=== PATIENT | male | born 1960 | race Caucasian/White ===

== ENCOUNTER 2021-12-27 12:36 | Inpatient (IN) | payer SELFPAY ==
[2021-12-27] MEDS ORDERED: DIAZEPAM 10 MG/2 ML INJ SYRINGE ONE (13:00)
[2021-12-27] MEDS ORDERED: MULTIVITAMINS 10 ML VIAL (INJ) IV ONE (13:01)
[2021-12-27] MEDS ORDERED: THIAMINE 200 MG/2 ML INJ ONE (13:01)
[2021-12-27] MEDS ORDERED: NA CHLORIDE 0.9% 1,000 ML ONE (13:02)
[2021-12-27] MEDS ORDERED: FOLIC ACID 5 MG/ML VIAL ONE (13:02)
--- NOTE | 2021-12-27 13:09 | RAD REPORT ---
EXAM DESCRIPTION: CT - Head Brain Wo Cont - 12/27/2021 1:04 pm CLINICAL HISTORY: Delirium Headache, drowsiness COMPARISON: No comparisons TECHNIQUE: All CT scans are performed using dose optimization technique as appropriate and may inclu de automated exposure control or mA/KV adjustment according to patient size. FINDINGS: No intracranial hemorrhage, hydrocephalus or extra-axial fluid collection.Mild brain atrop hy.No areas of brain edema or evidence of midline shift. The paranasal sinuses and mastoids are clear except for mild polypoid thickening in the sphenoid sinu s. The calvarium is intact. IMPRESSION: No acute intracranial abnormality.
[2021-12-27 14:07] LABS: Hematocrit 49.9 % (39.6-49.0); Lymphocytes % 9.2 % (15.3-44.8); MPV 9.7 fL (7.6-11.3); RBC Red Blood Cell Count 5.15 M/uL (4.33-5.43)
[2021-12-27 14:17] LABS: Protime INR 5.57
[2021-12-27 14:32] LABS: Platelet Estimate DECR; White Blood Cell Scan OK (OK)
[2021-12-27 14:33] LABS: Blood Morphology Comment NOT SEEN (NOT SEEN)
[2021-12-27 14:35] LABS: Albumin 2.1 g/dL (3.4-5.0)
[2021-12-27 14:36] LABS: Potassium 3.5 mmol/L (3.5-5.1)
[2021-12-27 14:42] LABS: Bilirubin Total 35.9 mg/dL (0.2-1.0)
--- NOTE | 2021-12-27 14:55 | RAD REPORT ---
EXAM DESCRIPTION: RAD - Chest Single View - 12/27/2021 2:47 pm CLINICAL HISTORY: CONGESTION Chest pain. COMPARISON: No comparisons FINDINGS: Portable technique limits examination quality. The lungs are grossly clear. The heart is normal in size. No displaced fractures.Prominent carotid ca lcifications seen in the neck. IMPRESSION: No acute intrathoracic process suspected.
--- NOTE | 2021-12-27 15:01 | EDPHYS ---
Physician Documentation [facility] Name: Gideon Pate Age: 61 yrs Sex: Male : 1960 Arrival Date: 12/27/2021 Time: 12:39 Bed 3 Private MD: ED Physician Hilary Thibodeaux HPI: 12/27 12:43 This 61 yrs old Male presents to ER via Unassigned with complaints of Altered mental ma2 status. 12:43 59-year-old male with alcoholic liver cirrhosis, has jaundice for a month, stop ma2 drinking a week ago, here with confusion for 3 days patient's altered, unable to give history, restless no vomiting diarrhea he has not been complaining of pain. Historical: - Allergies: 14:28 No Known Allergies; jg9 - PMHx: 14:28 ETOH ABUSE SINCE 12 YEARS OLD-BEER; jg9 - Immunization history:: Adult Immunizations Client reports receiving the 2nd dose of the Covid vaccine, Last tetanus immunization: Pneumococcal vaccine is not up to date, Flu vaccine is not up to date. - Social history:: Patient uses alcohol, Heavy drinking, quit drinking last week. Patient/guardian denies using street drugs, IV drugs, The patient lives with family, Smoking status: Patient reports the use of cigarette tobacco products, smokes one pack cigarettes per day. ROS: 12:43 Constitutional: Negative for fever, chills, and weight loss. ma2 12:43 All other systems are negative. 12:43 Unable to obtain ROS due to altered mental status. ma2 Exam: 12:43 Constitutional: Patient is cachectic, jaundiced restless altered nonverbal does not ma2 answer questions unkempt Head/Face: Normocephalic, atraumatic. Eyes: Pupils equal round and reactive to light, extra-ocular motions intact. Lids and lashes normal. Conjunctiva and sclera are non-icteric and not injected. Cornea within normal limits. Periorbital areas with no swelling, redness, or edema. ENT: Nares patent. No nasal discharge, no septal abnormalities noted. Tympanic membranes are normal and external auditory canals are clear. Oropharynx with no redness, swelling, or masses, exudates, or evidence of obstruction, uvula midline. Mucous membranes moist. Neck: Trachea midline, no thyromegaly or masses palpated, and no cervical lymphadenopathy. Supple, full range of motion without nuchal rigidity, or vertebral point tenderness. No Meningismus. Chest/axilla: Normal chest wall appearance and motion. Nontender with no deformity. No lesions are appreciated. Cardiovascular: Regular rate and rhythm with a normal S1 and S2. No gallops, murmurs, or rubs. Normal PMI, no JVD. No pulse deficits. Respiratory: Lungs have equal breath sounds bilaterally, clear to auscultation and percussion. No rales, rhonchi or wheezes noted. No increased work of breathing, no retractions or nasal flaring. Abdomen/GI: Nontense ascites, otherwise nontender no rebound otherwise soft, non-tender, with normal bowel sounds. No distension or tympany. No guarding or rebound. No evidence of tenderness throughout. Back: No spinal tenderness. No costovertebral tenderness. Full range of motion. MS/ Extremity: Pulses equal, no cyanosis. Neurovascular intact. Full, normal range of motion. Neuro: Patient patient is confused uncooperative with exam eyes open protecting airway Vital Signs: 12:30 BP 111 / 87; Pulse 90; Resp 20 S; Temp 96.7(A); Pulse Ox 98% on R/A; Weight 58.97 kg 9 (M); Height 5 ft. 6 in. (167.64 cm); 12:45 BP 115 / 100; Pulse 91; Resp 23 S; Pulse Ox 99% on R/A; jg9 14:15 BP 101 / 77; Pulse 84; Resp 25 S; Pulse Ox 99% on R/A; jg9 19:30 BP 119 / 90; Pulse 98; Resp 22 S; Pulse Ox 99% on R/A; al4 20:30 BP 122 / 73; Pulse 92; Resp 24 S; Pulse Ox 98% on R/A; al4 21:30 BP 132 / 85; Pulse 91; Resp 27 S; Pulse Ox 97% on R/A; al4 22:30 BP 139 / 83; Pulse 90; Resp 25 S; Pulse Ox 98% on R/A; al4 12:30 Body Mass Index 20.98 (58.97 kg, 167.64 cm) [facility] MDM: 12:43 Patient medically screened. ma2 14:58 Differential Diagnosis: electrolyte abnormality, alcohol intoxication, hypoglycemia, ma2 overdose. Data reviewed: vital signs, nurses notes. Counseling: I had a detailed discussion with the patient and/or guardian regarding: the historical points, exam findings, and any diagnostic results supporting the discharge/admit diagnosis, the presence of at least one elevated blood pressure reading (>120/80) during this emergency department visit, the need for further work-up and treatment in the hospital. Response to treatment: the patient's symptoms have markedly improved after treatment. 12/27 12:42 Order name: Blood Culture Adult (2) [facility] 12/27 12:42 Order name: CBC with Diff; Complete Time: 14:54 [facility] 12/27 12:42 Order name: CMP; Complete Time: 14:54 [facility] 12/27 12:42 Order name: Lactate; Complete Time: 14:54 [facility] 12/27 12:42 Order name: Protime (+inr); Complete Time: 14:54 [facility] 12/27 12:42 Order name: Ptt, Activated; Complete Time: 14:54 [facility] 12/27 12:42 Order name: Urine Microscopic Only; Complete Time: 17:25 [facility] 12/27 12:42 Order name: Chest Single View XRAY; Complete Time: 14:56 [facility] 12/27 12:42 Order name: CT Head Brain wo Cont; Complete Time: 13:40 [facility] 12/27 12:42 Order name: AMMONIA; Complete Time: 14:54 [facility] 12/27 12:49 Order name: SARS-COV-2 RT PCR (Document "Date of Onset" if Symptomatic); Complete Time: [facility] 15:03 12/27 14:31 Order name: CBC Smear Scan; Complete Time: 14:54 [facility] 12/27 15:06 Order name: CT Abd/Pelvis - Without Contrast; Complete Time: 17:25 [facility] 12/27 17:59 Order name: Lactate Sepsis 2 HR Follow-up [facility] 12/27 12:42 Order name: Accucheck; Complete Time: 14:15 [facility] 12/27 12:42 Order name: Cardiac monitoring; Complete Time: 14:15 [facility] 12/27 12:42 Order name: EKG - Nurse/Tech; Complete Time: 14:15 [facility] 12/27 12:42 Order name: IV Saline Lock - Large Bore; Complete Time: 14:15 [facility] 12/27 12:42 Order name: Labs collected and sent; Complete Time: 14:15 [facility] 12/27 12:42 Order name: O2 Per Protocol; Complete Time: 14:15 [facility] 12/27 12:42 Order name: O2 Sat Monitoring; Complete Time: 14:15 [facility] 12/27 15:06 Order name: US Abdomen Limited; Complete Time: 17:25 ma2 Administered Medications: 14:17 Drug: Valium (diazepam) 5 mg Route: IVP; Site: Other; jg9 15:53 Follow up: Response: No adverse reaction; RASS: Moderate sedation (-3) jg9 14:17 Drug: Banana Bag - (NS 0.9% 1000 ml, foLIC Acid 1 mg, Thiamine 100 mg, Multivitamin 1 jg9 amp) Route: IV; Rate: calculated rate; Site: Other; 17:30 Follow up: IV Status: Completed infusion; IV Intake: 1000ml jg9 16:45 Drug: Rocephin (cefTRIAXone) 1 grams Route: IV; Rate: calculated rate; Site: left hand; 18:52 Follow up: IV Status: Completed infusion; IV Intake: 10ml jg9 16:50 Not Given (Other Intervention Used): Dextrose 5 % in Normal Saline with KCl 20 mEq/L ss 1000 ml IV at 100 ml/hr continuous 17:51 Drug: D5-1/2 NS with KCl 20 mEq/L 1000 ml Route: IV; Rate: 100 ml/hr; Site: right ww jugular; 18:52 Not Given (NPO): Lactulose 30 grams 45 ml PO once jg9 Disposition: 14:58 Critical Care:. ma2 Disposition Summary: 12/27/21 15:01 Hospitalization Ordered Hospitalization Status: Inpatient Admission ma2 Provider: Harsha Stanley Location: [facility] Condition: Stable ma2 Problem: new ma2 Symptoms: are unchanged mn2 Bed/Room Type: [facility] Room Assignment: [facility](12/27/21 19:26) dw Diagnosis - Dehydration ma2 - Alcoholic cirrhosis of liver with ascites ma2 - Metabolic encephalopathy ma2 - Unspecified jaundice ma2 - Acute kidney failure, unspecified ma2 Forms: - Medication Reconciliation Form ma2 - SBAR form mn2 Critical care time excluding procedures: 14:58 Critical care time: Bedside Care: 30 minutes, Consultation: 10 minutes, Family ma2 Intervention: 5 minutes. Total time: 45 minutes Signatures: Dispatcher [employer] Lucia Benson RN RN Lina Nayak RN RN ss Alzahri, Mohammad, MD MD ma2 Gilmore, Jennifer RN GONZALEZ jg9 Razia Harley RN RN ww Corrections: (The following items were deleted from the chart) 12:45 12:43 All other systems are negative, mn2 [facility] 12:45 12:43 All other systems are negative, mn2 [facility] 19:26 15:01 [facility]
--- NOTE | 2021-12-27 15:01 | ER ---
Nurse's Notes [facility] Name: Gideon Pate Age: 61 yrs Sex: Male : 1960 Arrival Date: 12/27/2021 Time: 12:39 Bed 3 Private MD: Diagnosis: Dehydration;Alcoholic cirrhosis of liver with ascites;Metabolic encephalopathy;Unspecified jaundice;Acute kidney failure, unspecified Presentation: 12/27 12:30 Chief complaint: EMS states: lethargic and jaundiced from home, lives with Mom and jg9 nephew, 2 weeks ago nephew told patient he looked yellow, patient quit drinking and today he was found to be AMS. Coronavirus screen: Vaccine status: Patient reports receiving the 2nd dose of the covid vaccine. received both doses plus booster, unknown which manufactured brand. Ebola Screen: Patient negative for fever greater than or equal to 101.5 degrees Fahrenheit, and additional compatible Ebola Virus Disease symptoms Patient denies exposure to infectious person. Patient denies travel to an Ebola-affected area in the 21 days before illness onset. Initial Sepsis Screen: Does the patient meet any 2 criteria? Altered Mental Status. Does the patient have a suspected source of infection? No. Patient's initial sepsis screen is negative. Risk Assessment: Do you want to hurt yourself or someone else? Unable to obtain. Onset of symptoms is unknown. 12:30 Method Of Arrival: EMS: [facility] 12:30 Acuity: GISELLA 2 j9 Triage Assessment: 12:30 General: Appears uncomfortable, unkempt, emaciated, malnourished, Behavior is anxious, jg9 combative, uncooperative. Pain: Unable to use pain scale. Patient is disoriented. Patient is unresponsive. Historical: - Allergies: 14:28 No Known Allergies; jg9 - PMHx: 14:28 ETOH ABUSE SINCE 12 YEARS OLD-BEER; jg9 - Immunization history:: Adult Immunizations Client reports receiving the 2nd dose of the Covid vaccine, Last tetanus immunization: Pneumococcal vaccine is not up to date, Flu vaccine is not up to date. - Social history:: Patient uses alcohol, Heavy drinking, quit drinking last week. Patient/guardian denies using street drugs, IV drugs, The patient lives with family, Smoking status: Patient reports the use of cigarette tobacco products, smokes one pack cigarettes per day. Screenin:29 Abuse screen: Denies threats or abuse. Denies injuries from another. Nutritional jg9 screening: drinks beer daily-poor dietary intake (thin, unkempt, emaciated). Tuberculosis screening: No symptoms or risk factors identified. Fall Risk Fall in past 12 months (25 points). Assessment: 13:10 General: Appears malnourished, Behavior is drowsy, listless, restless. Pain: Unable to ww use pain scale. Patient is unresponsive. Neuro: Level of Consciousness is listless, Oriented to none Moves all extremities. Cardiovascular:. Respiratory: Airway is patent Respiratory effort is even, unlabored, Respiratory pattern is regular, symmetrical. GI: Abdomen is round. Derm: Skin is fragile, is thin, with poor turgor has skin tears on bilateral elbow Skin is jaundiced, yellow. 19:10 Reassessment: Bedside shift report given by GONZALEZ Randle to this RN and Anu Batres RN. al4 Razia RN states that patients condition is unchanged from arrival. 19:15 General: Appears unkempt, malnourished, Behavior is listless, restless, patient moving al4 legs. patient not responsive to voice. respiratory effort is unlabored. . Pain: Unable to use pain scale. Patient is unresponsive. Neuro: Level of Consciousness is listless, Oriented to none. Cardiovascular: Patient's skin is warm and dry. Respiratory: Airway is patent. : Sánchez in place. Derm: Skin is fragile, is thin, with poor turgor Skin is jaundiced, yellow. 22:11 Reassessment: Patient appears in no apparent distress at this time. kd3 22:40 Reassessment: Patient appears in no apparent distress at this time. Patient responded al4 to verbal stimuli by opening eyes and looking at RN. Patient making "moaning noises" occasionally. Vital Signs: 12:30 BP 111 / 87; Pulse 90; Resp 20 S; Temp 96.7(A); Pulse Ox 98% on R/A; Weight 58.97 kg jg9 (M); Height 5 ft. 6 in. (167.64 cm); 12:45 BP 115 / 100; Pulse 91; Resp 23 S; Pulse Ox 99% on R/A; jg9 14:15 BP 101 / 77; Pulse 84; Resp 25 S; Pulse Ox 99% on R/A; jg9 19:30 BP 119 / 90; Pulse 98; Resp 22 S; Pulse Ox 99% on R/A; al4 20:30 BP 122 / 73; Pulse 92; Resp 24 S; Pulse Ox 98% on R/A; al4 21:30 BP 132 / 85; Pulse 91; Resp 27 S; Pulse Ox 97% on R/A; al4 22:30 BP 139 / 83; Pulse 90; Resp 25 S; Pulse Ox 98% on R/A; al4 12:30 Body Mass Index 20.98 (58.97 kg, 167.64 cm) jg9 ED Course: 12:39 Patient arrived in ED. eb 12:40 Hilary Thibodeaux MD is Attending Physician. ma2 13:05 CT Head Brain wo Cont In Process Unspecified. EDMS 14:16 Urmila Hodge, RN is Primary Nurse. jg9 14:22 Triage completed. jg9 14:29 Arm band placed on right wrist. jg9 14:30 Patient has correct armband on for positive identification. Placed in gown. Bed in low jg9 position. Call light in reach. Side rails up X2. Seizure precautions initiated. 14:30 Inserted saline lock: 18 gauge in right EJ, using aseptic technique. Blood collected. jg9 14:49 Chest Single View XRAY In Process Unspecified. EDMS 15:01 Harsha Stanley is Hospitalizing Provider. ma2 15:31 CT Abd/Pelvis - Without Contrast In Process Unspecified. EDMS 16:07 US Abdomen Limited In Process Unspecified. EDMS 17:00 Inserted saline lock: 22 gauge in left hand, using aseptic technique. jg9 19:29 Primary Nurse role handed off by Urmila Hodge, RN mw2 19:57 Anu Bass, GONZALEZ is Primary Nurse. kd3 22:45 No provider procedures requiring assistance completed. Patient admitted, IV remains in al4 place. Administered Medications: 14:17 Drug: Valium (diazepam) 5 mg Route: IVP; Site: Other; jg9 15:53 Follow up: Response: No adverse reaction; RASS: Moderate sedation (-3) jg9 14:17 Drug: Banana Bag - (NS 0.9% 1000 ml, foLIC Acid 1 mg, Thiamine 100 mg, Multivitamin 1 jg9 amp) Route: IV; Rate: calculated rate; Site: Other; 17:30 Follow up: IV Status: Completed infusion; IV Intake: 1000ml jg9 16:45 Drug: Rocephin (cefTRIAXone) 1 grams Route: IV; Rate: calculated rate; Site: left hand; 18:52 Follow up: IV Status: Completed infusion; IV Intake: 10ml jg9 16:50 Not Given (Other Intervention Used): Dextrose 5 % in Normal Saline with KCl 20 mEq/L ss 1000 ml IV at 100 ml/hr continuous 17:51 Drug: D5-1/2 NS with KCl 20 mEq/L 1000 ml Route: IV; Rate: 100 ml/hr; Site: right ww jugular; 18:52 Not Given (NPO): Lactulose 30 grams 45 ml PO once jg9 Intake: 17:30 IV: 1000ml; Total: 1000ml. jg9 18:52 IV: 10ml; Total: 1010ml. jg9 Output: 22:45 Urine: 250ml (Sánchez); Total: 250ml. al4 Outcome: 15:01 Decision to Hospitalize by Provider. ma2 22:45 Admitted to Med/surg accompanied by nurse, Report called to GONZALEZ Salmon by Gonzalez Brennan al4 22:45 Condition: stable 23:10 Patient left the ED. al4 Signatures: Dispatcher [employer] EDMS Hilary Thibodeaux MD MD ma2 Karen Romano 2 Melva Mazariegos Kyli, RN RN kd3 Janes Pires al4 Urmila Hodge RN RN jg9 Razia Harley RN RN ww Lina Clifton RN ss Corrections: (The following items were deleted from the chart) 21:26 19:15 : Sánchez in place al4 al4 23:09 22:45 Reassessment: Patient appears in no apparent distress at this time. Patient al4 responded to verbal stimuli by opening eyes and looking at RN. Patient making "moaning noises" occasionally. al4
--- NOTE | 2021-12-27 15:38 | RAD REPORT ---
EXAM DESCRIPTION: CT - Abdomen Pelvis Wo Contrast - 12/27/2021 3:29 pm CLINICAL HISTORY: Abdominal pain. Liver failure COMPARISON: Head Brain Wo Cont dated 12/27/2021 TECHNIQUE: CT imaging of the abdomen and pelvis was performed without contrast. Solid organ, bowel a nd vascular assessment is limited due to lack of IV and oral contrast. All CT scans are performed using dose optimization technique as appropriate and may include automated exposure control or mA/KV adjustment according to patient size. FINDINGS: The lower lung pozo are clear. The liver appears prominent in size. There is suspected intrahepatic biliary tree dilatation seen. Th e caudate lobe appears prominent in size with the low-density area present. Full assessment is very l imited due to lack of contrast. The spleen is normal size. Adrenal glands and kidneys are unremarkable. Pancreatic parenchyma appears unremarkable. No definitive pancreatic duct dilatation. Increased densi ty is seen within the gallbladder. Mild ascites is present in the abdomen and pelvis. No bowel obstruction or free air. Moderate lumbar degenerative change. IMPRESSION: The liver appears enlarged with biliary dilatation suspected. Abnormal appearance to the caudate lobe is seen as well. Full assessment is quite limited by the lack of IV contrast. Mild ascites is present. Hyperdense material is present within the gallbladder. Followup MRI liver protocol would be recommended for further evaluation. A limited non-contrast examination was performed as detailed.
--- NOTE | 2021-12-27 16:27 | P.HP ---
Certification for Inpatient Patient admitted to: Inpatient With expected LOS: >2 Midnights Practitioner: I am a practitioner with admitting privileges, knowledge of patient current condition, hospital course, and medical plan of care. Services: Services provided to patient in accordance with Admission requirements found in Title 42 Section 412.3 of the Code of Federal Regulations Patient History Date of Service: 12/27/21 Reason for admission: Altered mental status History of Present Illness: 61-year-old gentleman with a history of alcohol abuse, alcohol liver cirrhosis was brought to the emergency department with a complaint of altered mental status. Per report patient has been confused over 2 days, jaundiced for 1 month and quit drinking 1 week ago. Patient is unresponsive and cannot provide any history. Admit the ex- by his bedside who endorsed history of alcohol abuse and that he quit drinking 1 week ago. Work-up in the emergency department revealed abnormal LFTs with markedly elevated bilirubin, elevated AST and ALT, coagulopathy with INR of 5, ammonia level of 150 indicating liver failure. He has thrombocytopenia, MELISA with a creatinine of 4, hyponatremia, lactic acidosis, and metabolic acidosis. Prognosis looks grim. Patient is hospitalized for further management. - Past Medical/Surgical History -: Alcohol liver cirrhosis -: Chronic alcoholism Past Surgical History: Unable to obtain - Social History Alcohol use: Yes Place of Residence: Home Review of Systems is unable to be obtained Physical Examination - Physical Exam General: Unresponsive HEENT: Atraumatic, Normocephalic, Mucous membr. moist/pink, Scleral icterus Neck: Supple, JVD not distended Respiratory: Clear to auscultation bilaterally, Normal air movement Cardiovascular: No edema, Regular rate/rhythm, Normal S1 S2 Gastrointestinal: Normal bowel sounds, Soft and benign, No tenderness, Distended (Mild) Musculoskeletal: No swelling, No tenderness Integumentary: No cyanosis, Other (Jaundiced skin) Neurological: Other (Unresponsive, withdraws all limbs to pain.) Lymphatics: No axilla or inguinal lymphadenopathy - Studies Laboratory Data (last 24 hrs) 12/27/21 13:52: PT 63.4 H, INR 5.57 H*, APTT 51.7 H 12/27/21 13:52: Sodium 130 L, Potassium 3.5, BUN 81 H, Creatinine 4.69 H, Glucose 52 L, Total Bilirubin 35.9 H*, AST 664 H*, ALT 122 H, Alkaline Phosphatase 867 H 12/27/21 13:52: WBC 10.7, Hgb 17.1, Hct 49.9 H, Plt Count 64 L Assessment and Plan - Problems (Diagnosis) (1) Hepatic encephalopathy Current Visit: Yes Status: Acute (2) Hepatic failure Current Visit: Yes Status: Acute (3) Coagulopathy Current Visit: Yes Status: Acute (4) Acute renal failure Current Visit: Yes Status: Acute (5) Metabolic acidosis Current Visit: Yes Status: Acute (6) Hyperbilirubinemia Current Visit: Yes Status: Acute (7) Chronic alcoholism Current Visit: Yes Status: Acute (8) Hypoglycemia Current Visit: Yes Status: Acute - Plan Admit to the medical floor. Supportive measures. Ativan IV as needed for agitation NG tube insertion and lactulose for hepatic encephalopathy. IV Rocephin for prophylaxis Follow blood cultures obtained in the ED Patient does not meet criteria for sepsis despite elevated lactic acidosis. IV hydration for MELISA. Monitor renal function. D5 normal saline to treat hypoglycemia. IV thiamine and IV folic acid. IV dexamethasone. CT abdomen and pelvis shows enlarged liver and biliary dilatation. Patient is not a candidate for surgery at this time. Unstable for MRCP. Consult to GI Consulted nephrology. Poor prognosis given hepatic failure. - Advance Directives Does patient have a Living Will: No Does patient have a Durable POA for Healthcare: No
--- NOTE | 2021-12-27 16:28 | RAD REPORT ---
EXAM DESCRIPTION: US - Abdomen Exam Limited - 12/27/2021 4:05 pm CLINICAL HISTORY: BILE OBSTRUCTION ruq Abdominal pain COMPARISON: No comparisons FINDINGS: The gallbladder demonstrates extensive cholelithiasis with gallbladder wall thickening. Th e common bile duct is dilated measuring 12 mm.. The liver demonstrates significant intrahepatic biliary dilatation. IMPRESSION: Cholelithiasis suspected with gallbladder wall thickening. Common bile duct is dilated to 12 mm. Moderate intrahepatic biliary tree dilatation. Recommend followup MRCP for further evaluation.
[2021-12-27] MEDS ORDERED: CEFTRIAXONE 1000 MG/VIAL ONE (16:45)
[2021-12-27] MEDS ORDERED: D5.45NS W/KCL 20MEQ 1,000 ML IV ONE (16:45)
[2021-12-27] MEDS ORDERED: NA CHLORIDE 0.9% 100 ML IV ONE (16:46)
[2021-12-27 17:13] LABS: Urine Bacteria <20 /HPF (NONE SEEN); Urine Mucus 2+ /HPF (NONE SEEN); Urine RBC 20-50 /HPF (NONE SEEN)
[2021-12-27] MEDS ORDERED: LORazepam 2 MG/ML VIAL IV PRN (22:55)
[2021-12-27] MEDS ORDERED: LACTULOSE 20 GM/30 ML UCUP PO SCH (22:55)
[2021-12-27] MEDS ORDERED: FLUMAZENIL 0.1 MG/ML (5 mL VIAL) IV PRN (22:55)
[2021-12-27] MEDS ORDERED: ONDANSETRON 4 MG/2 ML VIAL IV PRN (22:55)
[2021-12-27] MEDS: D5 0.9 NS 1,000 ML IV SCH (23:46)
[2021-12-28 01:26] VITALS: BMI 20.9
[2021-12-28 05:20] LABS: Urine Appearance Cloudy (Clear); Urine Blood 3+ (Negative); Urine Glucose Trace (Negative); Urine Protein 3+ (Negative); Urine Specific Gravity 1.025 (1.005-1.030)
[2021-12-28 05:21] LABS: Urine Color BROWN (Yellow)
[2021-12-28 05:22] LABS: Urine Bilirubin POSITIVE (Negative); Urine Microscopic Reflex ORDER UMIC
[2021-12-28] MEDS: LACTULOSE 20 GM/30 ML UCUP FT SCH ×4 (05:50→23:16)
[2021-12-28 05:52] LABS: Absolute Lymphocytes (CBC) 1.1 K/uL (0.7-4.9); Hematocrit 46.1 % (39.6-49.0); Lymphocytes % 8.9 % (15.3-44.8); MPV 9.4 fL (7.6-11.3); RBC Red Blood Cell Count 4.79 M/uL (4.33-5.43)
[2021-12-28 06:01] LABS: Urine Amorphous Sediment 3+ /HPF (NONE SEEN); Urine Bacteria >50 /HPF (NONE SEEN); Urine Mucus 2+ /HPF (NONE SEEN); Urine RBC TNTC /HPF (NONE SEEN); Urine Sperm PRESENT (NONE SEEN); Urine Yeast MANY (NONE SEEN)
[2021-12-28 06:16] LABS: Protime INR 6.5
[2021-12-28] MEDS: D5 0.9 NS 1,000 ML IV SCH (06:35)
[2021-12-28 07:18] LABS: Albumin 1.9 g/dL (3.4-5.0); Phosphorus 6.7 mg/dL (2.5-4.9); Potassium 3.7 mmol/L (3.5-5.1); Protein, Total 5.5 g/dL (6.4-8.2)
[2021-12-28 07:22] LABS: Bilirubin Total 35.8 mg/dL (0.2-1.0); Magnesium 3.6 mg/dL (1.8-2.4)
[2021-12-28 07:45] LABS: Anisocytosis 1+; Blood Morphology Comment NOTED (NOT SEEN); Platelet Estimate DECR; Target Cells 1+
[2021-12-28] MEDS: FOLIC ACID 1 MG, MULTIVITAMINS INJ 10 ML, THIAMINE HCL 100 MG in NA CHLORIDE 0.9% 1,000 ML IV SCH (09:02)
[2021-12-28] MEDS: THIAMINE 200 MG/2 ML INJ IVP SCH (09:03)
[2021-12-28] MEDS: D5W 1,000 ML with NA BICARB 8.4% 150 MEQ IV SCH ×2 (11:24)
--- NOTE | 2021-12-28 11:50 | P.PN ---
Subjective Date of Service: 12/28/21 Chief Complaint: Altered mental status Patient remain unresponsive. No change in mental status. Liver enzymes getting worse. No change in hyperbilirubinemia. No significant response to treatment since yesterday. Physical Examination - Vital Signs Temperature: 97.4 F Blood Pressure: 123/76 Pulse: 85 Respirations: 20 Pulse Ox (%): 99 - Studies Laboratory Data (last 24 hrs) 12/27/21 13:52: PT 63.4 H, INR 5.57 H*, APTT 51.7 H 12/27/21 13:52: Sodium 130 L, Potassium 3.5, BUN 81 H, Creatinine 4.69 H, Glucose 52 L, Total Bilirubin 35.9 H*, AST 664 H*, ALT 122 H, Alkaline Phosphatase 867 H 12/27/21 13:52: WBC 10.7, Hgb 17.1, Hct 49.9 H, Plt Count 64 L Assessment And Plan - Current Problems (Diagnosis) (1) Hepatic encephalopathy Current Visit: Yes Status: Acute (2) Hepatic failure Current Visit: Yes Status: Acute (3) Coagulopathy Current Visit: Yes Status: Acute (4) Acute renal failure Current Visit: Yes Status: Acute (5) Metabolic acidosis Current Visit: Yes Status: Acute (6) Hyperbilirubinemia Current Visit: Yes Status: Acute (7) Chronic alcoholism Current Visit: Yes Status: Acute (8) Hypoglycemia Current Visit: Yes Status: Acute - Plan Physical Exam General: Unresponsive HEENT: Atraumatic, Normocephalic, Mucous membr. moist/pink, Scleral icterus Neck: Supple, JVD not distended Respiratory: Clear to auscultation bilaterally, Normal air movement Cardiovascular: No edema, Regular rate/rhythm, Normal S1 S2 Gastrointestinal: Normal bowel sounds, Soft and benign, No tenderness, Distended (Mild) Musculoskeletal: No swelling, No tenderness Integumentary: No cyanosis, Other (Jaundiced skin) Neurological: Other (Unresponsive, withdraws all limbs to pain.) Lymphatics: No axilla or inguinal lymphadenopathy Plan: Liver enzymes more elevated, MELISA is worse, thrombocyte count trending down, patient is still unresponsive, no change in mental status. Patient has not responded to treatment and his clinical condition is progressing. I met the ex- and patient's daughter. Per report patient mother has dementia and his children are the next of kin. According to the daughter, the family have decided to proceed with comfort measures. Patient made DNR. Social service consulted for arrangement for hospice for comfort measures NG tube is in place. This will be removed once comfort measures initiated. Continue IV fluid for now. Ativan as needed.
--- NOTE | 2021-12-28 15:18 | P.CNS ---
Date of Consult: 12/28/21 Chief Complaint: Altered mental status History of Present Illness: pt is unable to provide Hx , HX obtained from traore 61-year-old gentleman with a history of alcohol abuse, alcohol liver cirrhosis Pt brought to ER for AMS in ER INR of 5, ammonia level of 150, NA 131, bicarbonate 16, Cr 4.7 , pt is jaundiced and oliguric ROS unable to provide Physical exam General: lethargic, jaundiced HEENt: NG tube with bloody drainage CHEST; CTAB, no wheezes or rales HEART : RRR. Normal S1,2 no murmur or rub Abd: dstended,soft, Nt, bhatti catheter Ext: no edema Skin : jaundiced A/p MELISA Anuric possibly due to ATN vs HRS I cot IVF avoid NSAID not candidate for renal replacement therapy Hyponatremia in cirrhosis setting Cont IVF Metabolic acidosis due to lactic acidosis cont bicarbonate drip Alcoholic Liver cirrhosis Severe jaundice Cont supportive care Upper GI bleeding Likely due to esophageal varcices Pt with overall poor prognosis, will recommend comfort care Total time spent 65mnuts , including documentation, reviewing orders and discussing with medical team Allergies No Known Allergies Allergy (Unverified 12/27/21 22:55) - Past Medical/Surgical History -: Alcohol liver cirrhosis -: Chronic alcoholism - Social History Smoking Status: Current every day smoker Alcohol use: Yes Place of Residence: Home Physical Examination Temp Pulse Resp BP Pulse Ox 97.7 F 86 20 130/84 94 12/28/21 12:00 12/28/21 12:00 12/28/21 12:00 12/28/21 12:00 12/28/21 12:00
[2021-12-28] MEDS ORDERED: CEFTRIAXONE 1,000 MG in NA CHLORIDE 0.9% 50 ML IVPB SCH (18:00)
[2021-12-29] MEDS: D5W 1,000 ML with NA BICARB 8.4% 150 MEQ IV SCH ×2 (01:01)
[2021-12-29] MEDS: LACTULOSE 20 GM/30 ML UCUP FT SCH ×2 (05:30→12:00)
[2021-12-29] MEDS: FOLIC ACID 1 MG, MULTIVITAMINS INJ 10 ML, THIAMINE HCL 100 MG in NA CHLORIDE 0.9% 1,000 ML IV SCH (08:12)
[2021-12-29] MEDS: THIAMINE 200 MG/2 ML INJ IVP SCH (08:14)
[2021-12-29 09:09] VITALS: BP 97/67; TEMP 97.3
[2021-12-29 09:16] VITALS: O2SAT 99
[2021-12-29 10:18] LABS: Absolute Lymphocytes (CBC) 1.1 K/uL (0.7-4.9); Hematocrit 48.2 % (39.6-49.0); Lymphocytes % 10.6 % (15.3-44.8); MPV 8.8 fL (7.6-11.3); RBC Red Blood Cell Count 4.98 M/uL (4.33-5.43)
[2021-12-29 10:42] LABS: Protime INR 5.4
[2021-12-29 10:44] LABS: Albumin 1.8 g/dL (3.4-5.0); Bilirubin Total 33.8 mg/dL (0.2-1.0); Phosphorus 6.8 mg/dL (2.5-4.9); Potassium 3.7 mmol/L (3.5-5.1); Protein, Total 5.4 g/dL (6.4-8.2)
[2021-12-29 10:45] LABS: Magnesium 3.6 mg/dL (1.8-2.4)
--- NOTE | 2021-12-29 12:15 | RAD REPORT ---
EXAM DESCRIPTION: RAD - Chest Single View - 12/28/2021 3:53 am ADDENDUM #1 THIS REPORT CONTAINS FINDINGS THAT MAY BE CRITICAL TO PATIENT CARE: The findings were verbally discus sed via telephone conference with GONZALEZ Mills by Dr. Strong at 0439 hours central time on December 062021. The results were acknowledged and understood. Electronically signed by: Deric Strong MD 12/28/2021 4:40 AM CDT End of Addendum EXAM DESCRIPTION: Chest Single View CLINICAL HISTORY: 61 years Male, NGT placement COMPARISON: None. FINDINGS: NG tube present with tip at the gastroesophageal junction and side-port in the lower thora cic esophagus. There is a small opacity in the left midlung zone. No pneumothorax. No significant pleural effusion. Cardiac silhouette appears normal in size. Aortic atherosclerosis is present. Degenerative changes of the spine noted. IMPRESSION: 1. NG tube tip at the gastroesophageal junction. 2. Small opacity in the left midlung zone may represent atelectasis or infiltrate. Electronically signed by: Deric Strong MD 12/28/2021 4:34 AM CDT Due to temporary technical issues with the PACS/Fluency reporting system, reports are being signed by the in house radiologists without review as a courtesy to insure prompt reporting. The interpreting radiologist is fully responsible for the content of the report.
[2021-12-29 14:37] LABS: Blood Morphology Comment NOT SEEN (NOT SEEN); Platelet Estimate DECR; White Blood Cell Scan OK (OK)
--- NOTE | 2021-12-29 16:32 | P.DS ---
Admission Date: 12/27/21 Discharge Date: 12/29/21 Disposition: HOSPICE-MEDICAL FACILITY Reason for Admission: Altered mental status - Problems (1) Hepatic encephalopathy Status: Acute (2) Hepatic failure Status: Acute (3) Coagulopathy Status: Acute (4) Acute renal failure Status: Acute (5) Metabolic acidosis Status: Acute (6) Hyperbilirubinemia Status: Acute (7) Chronic alcoholism Status: Acute (8) Hypoglycemia Status: Acute Brief History of Present Illness: 61-year-old gentleman with a history of alcohol abuse, alcohol liver cirrhosis was brought to the emergency department with a complaint of altered mental status. Per report patient was confused over 2 days, jaundiced for 1 month and quit drinking 1 week ago. Patient is unresponsive and could not provide any history. His ex- by his bedside endorsed history of alcohol abuse and that he quit drinking 1 week prior. Work-up in the emergency department revealed abnormal LFTs with markedly elevated bilirubin, elevated AST and ALT, coagulopathy with INR of 5, ammonia level of 150 indicating liver failure. He has thrombocytopenia, MELISA with a creatinine of 4, hyponatremia, lactic acidosis, and metabolic acidosis. Patient was hospitalized for further management. Hospital Course: Admitted to the medical floor and started on supportive measures including IV fluid, IV antibiotic. LFT INR were monitored. He remain unresponsive, his renal function, liver function all got worse. Met with his daughter who stated family have decided to proceed with comfort measures. Hospice consulted. Patient discharged to hospice service for inpatient hospice and comfort care. Vital Signs/Physical Exam: Temp Pulse Resp BP Pulse Ox 97.3 F 82 22 H 97/67 97 12/29/21 08:00 12/29/21 08:00 12/29/21 08:00 12/29/21 08:00 12/29/21 08:00 General: Unresponsive HEENT: Scleral icterus Respiratory: Clear to auscultation bilaterally Cardiovascular: Edema Gastrointestinal: Distended Integumentary: Other (Jaundiced skin) Laboratory Data at Discharge: WBC 10.2 K/uL (4.3-10.9) D 12/29/21 10:00 Hgb 16.8 g/dL (13.6-17.9) 12/29/21 10:00 Hct 48.2 % (39.6-49.0) 12/29/21 10:00 Plt Count 21 K/uL (152-406) L* D 12/29/21 10:00 PT 61.5 SECONDS (9.5-12.5) H 12/29/21 10:00 INR 5.40 H* 12/29/21 10:00 APTT 51.7 SECONDS (24.3-36.9) H 12/27/21 13:52 Sodium 134 mmol/L (136-145) L 12/29/21 10:00 Potassium 3.7 mmol/L (3.5-5.1) 12/29/21 10:00 BUN 106 mg/dL (7-18) H 12/29/21 10:00 Creatinine 6.35 mg/dL (0.55-1.3) H* D 12/29/21 10:00 Glucose 81 mg/dL (74-106) 12/29/21 10:00 Phosphorus 6.8 mg/dL (2.5-4.9) H 12/29/21 10:00 Magnesium 3.6 mg/dL (1.8-2.4) H* 12/29/21 10:00 Total Bilirubin 33.8 mg/dL (0.2-1.0) H* 12/29/21 10:00 AST 1569 U/L (15-37) H* D 12/29/21 10:00 ALT 236 U/L (12-78) H 12/29/21 10:00 Alkaline Phosphatase 649 U/L (45-117) H 12/29/21 10:00 Home Medications: NK [No Home Meds] 12/29/21 Followup: NONE,NONE [Primary Care Provider] - Time spent managing pt's care (in minutes): 38
--- NOTE | 2021-12-29 21:57 | PN ---
Date of Progress Note: 12/29/2021 Chief Complaint: Acute kidney injury, severe. Subjective: The patient has history of alcoholic liver cirrhosis. He was admitted with altered ment al status. He remains oliguric. He has severe hepatorenal syndrome. Ammonia level was up to 150. Sodium 131, bicarbonate 16, and creatinine 4.7. He had jaundice and remained borderline oliguric. Review of Systems: Unobtainable. The patient is awake, although he cannot provide review of systems. He is confused. Physical Examination: Lungs: Few rhonchi. Heart: S1, S2. Abdomen: Soft. Extremities: No edema. Skin: Jaundice. Impression And Plan: 1.Acute kidney injury, severe, due to acute tubular necrosis with underlying hepatorenal syndrome. The patient will continue IV fluids. The patient will avoid nonsteroidal anti-inflammatory medicatio n. 2.Hyponatremia secondary to cirrhosis in setting of hepatorenal syndrome. Continue normal saline __ . 3.Metabolic acidosis due to lactic acid related to cirrhosis. Monitor lab work. Continue bicarbona te drip. 4.Alcoholic liver cirrhosis, severe per primary team. 5.History of possible gastrointestinal bleeding. The patient will have workup by primary team. KORINA/MODL Voice ID: [id number] Report ID: [id number]
== END 2021-12-29 12:00 | disposition hospice, inpatient (51) | DRG 441 ==
LOC: ER 12:36 → ERHOLD 16:05 → 2ND 21:56
PROVIDERS: ADMIT Internal Medicine; ATTEND Internal Medicine
DX: K72.01 Acute and subacute hepatic failure with coma (principal); N17.0 Acute kidney failure with tubular necrosis; E87.1 Hypo-osmolality and hyponatremia; E87.2 Acidosis; D68.9 Coagulation defect, unspecified; K70.30 Alcoholic cirrhosis of liver without ascites; F10.10 Alcohol abuse, uncomplicated; D69.6 Thrombocytopenia, unspecified; E16.2 Hypoglycemia, unspecified; E80.6 Other disorders of bilirubin metabolism; Z66 Do not resuscitate; Z20.822 Contact with and (suspected) exposure to COVID-19
CPT/HCPCS: 36415; 70450; 71045; 74176; 76705; 80053; 81003; 81015; 82140; 83605; 83735; 84100; 85025; 85610; 85730; 87040; 87086; 87088; 93005; 99285; J3360; J3411; J7030; J7042; U0003

== ENCOUNTER 2021-12-29 11:55 | Inpatient (IN) | payer OTHER ==
[2021-12-29] MEDS ORDERED: MORPHINE 2 MG/ML SYR IV PRN (12:48)
[2021-12-29] MEDS ORDERED: LORazepam 2 MG/ML VIAL IV PRN (12:49)
[2021-12-29] MEDS ORDERED: ONDANSETRON 4 MG/2 ML VIAL IV PRN (12:50)
[2021-12-29] MEDS ORDERED: BISACODYL 10 MG RECTAL SUPP PR PRN (12:51)
[2021-12-29] MEDS ORDERED: POLYVINYL ALCOHOL 1.4% 15 ML OPTH PRN (12:51)
[2021-12-29] MEDS ORDERED: ACETAMINOPHEN 650MG/RECT SUPP PR PRN (12:51)
[2021-12-29] MEDS ORDERED: SCOPOLAMINE HYDROBROMIDE PATCH TD SCH (13:00)
[2021-12-29 13:53] VITALS: BMI 20.9
[2021-12-29] MEDS: LORazepam 2 MG/ML VIAL IV SCH ×3 (14:02→20:15)
[2021-12-29] MEDS: MORPHINE 2 MG/ML SYR IV SCH ×3 (14:03→20:15)
[2021-12-29 17:10] VITALS: TEMP 96.9
[2021-12-29 22:14] VITALS: O2SAT 90
[2021-12-29 22:56] VITALS: BP 66/51
[2021-12-30] MEDS: MORPHINE 2 MG/ML SYR IV SCH ×2 (00:15→04:41)
[2021-12-30] MEDS: LORazepam 2 MG/ML VIAL IV SCH ×2 (00:15→04:41)
== END 2021-12-30 08:54 | disposition expired | DRG 951 ==
LOC: 2ND 11:55
PROVIDERS: ADMIT Internal Medicine Hematology & Oncology; ATTEND Internal Medicine Hematology & Oncology
DX: Z51.5 Encounter for palliative care (principal); K74.60 Unspecified cirrhosis of liver
CPT/HCPCS: J2270